=== PATIENT | female | born 1930 | race African-American/Black ===

== ENCOUNTER 2016-06-30 12:58 | Inpatient (IN) | payer MEDICARE, BC ==
--- NOTE | ~2016-06-30 | CR126 ---
[facility] A Service of [facility] RADIOLOGY TEXT RESULTS PATIENT: IRMA NAVA LOCATION: CEDOF : 29 UNIT #: [id number] AGE: [address]: DORA TELLEZ MD SEX: F ORDER DR: [id number] [facility] [address] [facility]. [place], [place] [address] [id number] E MR#: [id number] Acc #: [id number] NAME: IRMA NAVA : 1930 SEX: F STUDY DATE/TIME: 06/30/2016 14:08 UNIT: [facility] ROOM: STUDY DESCRIPTION: CR Foot Complete Min 3 View Lt Attending Physician: Mick Sinclair M.D. Ordering Physician: Mick Sinclair M.D. Primary Care Physician: Jared Minaya III, M.D. MEDICAL IMAGING REPORT This report is preliminary unless electronic signature is present EXAM Left foot series, 06/30/2016 HISTORY 85-year-old female in the ED complaining of 3-day history of left lower leg and foot soft tissue swelling and redness. Peeling skin. History of diabetes. TECHNIQUE Three-view left foot series. FINDINGS Soft tissue edema is seen throughout the left foot. No visible soft tissue gas or radiopaque soft tissue foreign body. No radiographic evidence of osteomyelitis or destructive arthropathy. Generalized demineralization is noted. No fracture, dislocation or other acute osseous abnormality. IMPRESSION Soft tissue swelling throughout the foot. No acute osseous abnormality. Demineralization. Dictated by... Scott Mcgee M.D. THIS IS AN ELECTRONICALLY VERIFIED REPORT Scott Mcgee M.D. at 06/30/2016 6:48 PM MERA/sabi TD: 06/30/2016 15:37 JOB #: [id number] MEDICAL IMAGING REPORT [facility] A Service of [facility] RADIOLOGY TEXT RESULTS PATIENT: IRMA NAVA LOCATION: [facility] : 29 UNIT #: [id number] AGE: [address]: DORA TELLEZ MD SEX: F ORDER DR: Page 1 of 1 COPY
--- NOTE | ~2016-06-30 | US136 ---
[facility] A Service of [facility] RADIOLOGY TEXT RESULTS PATIENT: IRMA NAVA LOCATION: [facility] 316-01 : 29 UNIT #: [id number] AGE: [address]: Thom Zelaya MD SEX: F ORDER DR: [id number] [facility] [address] [facility]. [place], [place] [address] [id number] I MR#: [id number] Acc #: [id number] NAME: IRMA NAVA : 1930 SEX: F STUDY DATE/TIME: 07/01/2016 10:06 UNIT: [address] ROOM: [facility] STUDY DESCRIPTION: US U/L Ext Art Study Ltd Bilat Attending Physician: Thom Zelaya M.D. Ordering Physician: Thom Zelaya M.D. Primary Care Physician: Jared Minaya III, M.D. MEDICAL IMAGING REPORT This report is preliminary unless electronic signature is present EXAM Left lower extremity arterial segmental pressures HISTORY Left leg claudication. Left leg numbness and tingling. FINDINGS The right brachial pressure is 152 and the left brachial pressure is 124. The left posterior tibial pressure is 125, dorsalis pedis 150, and toe 103 for an ankle to brachial index of 0.99. Doppler wave form analysis indicates a triphasic signal in the dorsalis pedis and posterior tibial artery from the left side. Pulse volume recording tracings demonstrate a good amplitude signal at the left ankle level. There is dampening of the amplitude of signal at the digital level. IMPRESSION Normal perfusion to the left leg with an ankle to brachial index of 0.99. 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 Dictated by... Clemente Birch M.D. THIS IS AN ELECTRONICALLY VERIFIED REPORT Clemente Birch M.D. at 07/02/2016 7:32 AM [facility] A Service of [facility] RADIOLOGY TEXT RESULTS PATIENT: IRMA NAVA LOCATION: [facility] 316-01 : 29 UNIT #: [id number] AGE: [address]: Thom Zelaya MD SEX: F ORDER DR: MARLEN/jayce TD: 07/01/2016 13:30 JOB #: [id number] MEDICAL IMAGING REPORT Page 1 of 1 COPY
--- NOTE | ~2016-06-30 | DS ---
Unit #: [id number] #: [id number] Patient: IRMA NAVA [id number] [address] [place], [place] [address] [id number] I MR#: [id number] NAME: IRMA NAVA ROOM: 316 Age: 85 Sex: F Admission Date: 07/01/2016 : 1930 Discharge Date: 07/03/2016 Attending Physician: Thom Zelaya M.D. Primary Care Physician: Jared Minaya III, M.D. DISCHARGE SUMMARY DISCHARGE DIAGNOSES 1. Left lower extremity cellulitis with MRSA wound sensitive to clindamycin. 2. Status post fall. 3. Stage 3 chronic kidney disease followed by Dr. Schaefer. 4. Anasarca with swelling in bilateral lower extremities treated with Lasix. 5. Essential hypertension. Blood pressure has been stable during this hospitalization. 6. Questionable multiple myeloma. Dr. Hernandez of Oncology was consulted. 7. Type 2 diabetes. This is well maintained. 8. Chronic diastolic heart failure, appears to be fluid balanced. 9. Iron deficiency anemia. Replaced orally. PROCEDURES None. CONSULTANTS 1. Dr. Schaefer of Nephrology. 2. Dr. Hernandez of Oncology. DIAGNOSTIC STUDIES LABORATORY: Today's labs include BMP with glucose of 96, BUN 23, creatinine 1.6, sodium 141, potassium 4.4, chloride 97, CO2 of 36, calcium 8.7, and magnesium 2.1. CBC with WBC of 6, RBC 4.26, hemoglobin 10.7, hematocrit 35, MCV 82.2, MCH 25.2, MCHC 30.7, RDW 16.5, platelets 203,000, and MPV is 8. IMAGING: X-ray of tibia-fibula on June 30, 2016, impression: Extensive skin thickening and subcutaneous soft tissue edema throughout the visualized lower leg. Multiple lucent intramedullary bone lesions within the tibia and fibula concerning for potential multiple myeloma. X-ray of the foot on June 30, 2016, impression: Soft tissue swelling throughout the foot. No acute osseous abnormality. Demineralization noted. Lower extremity ultrasound Doppler on June 30, 2016, impression: Negative examination. No evidence of left lower extremity deep venous thrombosis. ABIs of the left lower extremity, impression: Normal perfusion to the left leg with an ankle-brachial index of 0.99. 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 X-ray bone survey done on July 02, 2016, impression: Negative skeletal survey. HOSPITAL COURSE Unit #: [id number] #: [id number] Patient: IRMA NAVA The patient is a pleasant 85-year-old female with a past medical history of chronic kidney disease stage 3, essential hypertension, diabetes, chronic diastolic heart failure, and chronic respiratory failure on two liters of oxygen nasally, who presented to the emergency department due to left lower extremity pain. The patient presented to patient's primary care physician a couple of days ago due to a fall about two to three weeks ago and has had gradually worsening swelling and redness of the lower extremity. In the emergency department, she had fluid seeping out of her lower extremity. The patient had slipped and fell but denied loss of consciousness. Of note, Dr. Schaefer of Nephrology had increased patient's Lasix from 20 mg orally twice daily to 40 mg orally twice daily, and despite this, patient still had lower extremity swelling. Patient was admitted for left lower extremity cellulitis. X-ray and Dopplers were done initially which revealed no DVT. Due to concern on initial x-ray of the foot with questionable multiple myeloma, Dr. Hernandez of Oncology has seen the patient in consultation, and workup is still underway. Dr. Hernandez will see patient in the office in one week to follow up on 24-hour urine studies. At this time, patient is stable and is ready to be discharged home. She will be seen and followed by [facility]. DISCHARGE CONDITION Stable. DISCHARGE DIET Regular/heart-healthy diet with consistent carbohydrates for her diabetes per [place] [employer]'s recommendation. DISCHARGE MEDICATIONS 1. Albuterol nebulized 4 times daily as needed. 2. Symbicort 160 mcg 2 puffs inhaled twice daily. 3. Lexapro 10 mg orally daily. 4. Tenormin 100 mg orally daily. 5. Docusate 100 mg orally daily. 6. MiraLax 17 grams orally daily as needed for constipation. 7. Lasix was increased to 40 mg orally twice daily. 8. Ditropan 10 mg orally daily. 9. Atorvastatin 10 mg orally daily. 10. Lovastatin 40 mg orally at bedtime. 11. Hydralazine 100 mg orally 3 times daily. 12. Iron supplement 325 mg orally twice daily. 13. Aspirin 81 mg orally daily. 14. Protonix 40 mg orally daily. 15. Potassium chloride 20 mEq orally daily. 16. Imdur extended release 60 mg orally daily. 17. Clindamycin 300 mg orally 4 times daily for 5 days. 18. I will also be giving a prescription for probiotic 600 mg orally twice daily. Please note that the Lasix increase and potassium supplement were both confirmed with Dr. Schaefer, and patient does have a followup appointment with Dr. Schaefer and repeats labs of CBC, BMP, and phosphorus level. Dictated by... Chirag Wetzel PA-C for Thom Zelaya M.D. Unit #: [id number] #: [id number] Patient: IRMA NAVA Graham TD: 07/05/2016 20:51 JOB #: [id number] DISCHARGE SUMMARY Page 1 of 1 X X DISCHARGE SUMMARY
--- NOTE | ~2016-06-30 | CR48 ---
[facility] A Service of [facility] RADIOLOGY TEXT RESULTS PATIENT: IRMA NAVA LOCATION: [facility] 316-01 : 29 UNIT #: [id number] AGE: [address]: Thom Zelaya MD SEX: F ORDER DR: [id number] [facility] [address] [facility]. [place], [place] [address] [id number] I MR#: [id number] Acc #: [id number] NAME: IRMA NAVA : 1930 SEX: F STUDY DATE/TIME: 07/02/2016 15:33 UNIT: [address] ROOM: [facility] STUDY DESCRIPTION: CR Bone Survey Attending Physician: Thom Zelaya M.D. Ordering Physician: Tomer Hernandez M.D. Primary Care Physician: Jared Minaya III, M.D. MEDICAL IMAGING REPORT This report is preliminary unless electronic signature is present EXAM Bone survey. HISTORY Possible metastatic malignancy. FINDINGS AP and lateral radiographs of the axial and appendicular skeleton were obtained for a bone survey. No aggressive osteolytic or osteoblastic lesions are identified within the skeleton. Patient has multiple areas of osteoarthritis. No pathologic fractures are identified. IMPRESSION Negative skeletal survey Dictated by... Clif Bryson M.D. THIS IS AN ELECTRONICALLY VERIFIED REPORT Clif Bryson M.D. at 07/02/2016 6:27 PM RPC/jayne TD: 07/02/2016 18:19 JOB #: [id number] MEDICAL IMAGING REPORT Page 1 of 1 COPY
--- NOTE | ~2016-06-30 | HP ---
Unit #: [id number] #: [id number] Patient: IRMA NAVA [id number] [address] [place], [place] [address] [id number] I MR#: [id number] NAME: IRMA NAVA ROOM: 09971 Age: 85 Sex: F Admission Date: 06/30/2016 : 1930 Attending Physician: Mami Arita M.D. Primary Care Physician: Jared Minaya III, M.D. HISTORY AND PHYSICAL CHIEF COMPLAINT Left leg pain. HISTORY OF PRESENT ILLNESS The patient is an 85-year-old female with history of hypertension, diabetes, chronic diastolic heart failure, chronic kidney disease, acute on chronic respiratory failure - on 2 liters of home oxygen. Presented to the emergency room with left lower leg pain. The patient presented to the PCP's office earlier today with history of a fall 2-3 weeks ago and gradual swelling and redness of the left lower lobe. The patient has fluid seeping from the leg with swelling and erythema of the leg. The patient denies any fever, chills, nausea, vomiting. The patient stated she slipped down on the floor and denies any loss of consciousness. PAST MEDICAL HISTORY Chronic diastolic heart failure, chronic respiratory failure - on home oxygen, hypertension, diabetes. PAST SURGICAL HISTORY Hysterectomy, ruptured naval. HOME MEDICATIONS She is on aspirin, Tenormin, Colace, Ditropan, iron, Protonix, Lexapro, Combivent, Symbicort, MiraLAX, hydralazine, Imdur, prednisone, Lasix and lovastatin. FAMILY HISTORY Significant for coronary artery disease. SOCIAL HISTORY The patient has history of social alcohol use and chronic caffeine use. The patient is a former smoker and quit 26 years ago. She is . No known occupational exposures. ALLERGIES No known drug allergies. REVIEW OF SYSTEMS A 14-point review of systems was performed, and all the pertinent positive findings are as described above. The remaining are negative. PHYSICAL EXAMINATION GENERAL: The patient is lying in the bed, not in acute distress. VITALS: Temperature is 97.9, pulse 55, respiratory rate 15, blood Unit #: [id number] #: [id number] Patient: NAVA,IRMA pressure 156/70, satting 96% on room air. HEENT: Head atraumatic, normocephalic. Pupils are equal, round, reacting to light and accommodation. Extraocular movements are intact. Moist mucous membranes. NECK: Supple. LUNGS: Decreased air entry at the bases. No rhonchi. No wheezing. HEART: Regular rate and rhythm. ABDOMEN: Soft. Positive bowel sounds. EXTREMITIES: No cyanosis. No clubbing. Positive for left lower extremity swelling and tenderness and fluid seeping through the wound. NEUROLOGIC: Alert, awake, oriented. No gross focal motor deficit. DIAGNOSTIC STUDIES LAB DATA: Glucose 153, BUN 29, creatinine 1.4, sodium 141, potassium 3.8, chloride 95, bicarb 36, calcium 9.1, total protein 6.6, albumin 3.5, AST 16, ALT 11. WBC 7.1, hemoglobin 11.2, hematocrit 37.6, platelets 222. IMAGING: X-ray of the foot shows soft tissue edema. No gas osteomyelitis. No degenerative arthritis. X-ray of the tibia and fibula shows extensive soft tissue edema and concern for lytic lesions, concerning for multiple myeloma, unlikely metastatic disease. ASSESSMENT 1. Cellulitis of the left leg. 2. Status post fall. 3. Chronic kidney disease. PLAN Plan to admit the patient to observation with telemetry. Continue with IV antibiotics with clindamycin 150 mg q.8 and will have wound evaluation and compression stockings. Change the Lasix oral to IV with 20 mg IV b.i.d. and check urine SPEP and UPEP for multiple myeloma. Will have renal consult for chronic kidney disease stage 3 and check the venous Dopplers of the left leg and repeat the labs again in the morning. Further recommendations will follow. Dictated by Aaliyah Jaquez TD: 06/30/2016 16:17 JOB #: [id number] HISTORY AND PHYSICAL Page 1 of 1 X X HISTORY AND PHYSICAL
--- NOTE | ~2016-06-30 | CR252 ---
[facility] A Service of [facility] RADIOLOGY TEXT RESULTS PATIENT: IRMA NAVA LOCATION: CED : 29 UNIT #: [id number] AGE: [address]: DORA TELLEZ MD SEX: F ORDER DR: [id number] [place] [address] [facility]. [place], [place] [address] [id number] MR#: [id number] Acc #: [id number] NAME: IRMA NAVA : 1930 SEX: F STUDY DATE/TIME: 06/30/2016 14:07 UNIT: [facility] ROOM: STUDY DESCRIPTION: CR Tibia and Fibula 2 Views Lt Attending Physician: Mick Sinclair M.D. Ordering Physician: Mick Sinclair M.D. Primary Care Physician: Jared Minaya III, M.D. MEDICAL IMAGING REPORT This report is preliminary unless electronic signature is present EXAM Left tibia-fibula series 06/30/2016 HISTORY 85-year-old female in the ED complaining of left lower leg redness and swelling. Symptoms for about 3 days. TECHNIQUE AP and lateral radiographs of the left tibia and fibula were obtained. FINDINGS The examination shows extensive soft tissue swelling and subcutaneous edema throughout the visualized left lower leg extending to the ankle. Correlate for clinical evidence of cellulitis. There are multiple regions of lytic intramedullary lucency within the mid portions of both the tibia and fibula. The pattern is concerning for osseous malignancy, particularly multiple myeloma. Followup clinical and laboratory assessment is recommended. Metastatic disease is also possible, but less likely. The findings do not have a radiographic appearance suggestive of osteomyelitis. Advanced degenerative arthropathy is noted at the left knee. No acute osseous abnormality is seen. IMPRESSION 1. Extensive skin thickening and subcutaneous soft tissue edema throughout the visualized lower leg. 2. Multiple lucent intramedullary bone lesions within the tibia and fibula concerning for potential multiple myeloma. See above. Dictated by... [facility] A Service [facility] RADIOLOGY TEXT RESULTS PATIENT: IRMA NAVA LOCATION: [facility] : 29 UNIT #: [id number] AGE: [address]: DORA TELLEZ MD SEX: F ORDER DR: Scott Mcgee M.D. THIS IS AN ELECTRONICALLY VERIFIED REPORT Scott Mcgee M.D. at 06/30/2016 6:48 PM MERA/jose TD: 06/30/2016 15:41 JOB #: [id number] MEDICAL IMAGING REPORT Page 1 of 1 COPY
--- NOTE | ~2016-06-30 | CO ---
Unit #: [id number] #: [id number] Patient: IRMA NAVA [id number] [address] [place], [place] [address] [id number] MR#: [id number] NAME: IRMA NAVA ROOM: 316 Age: 85 Sex: F Admission Date: 07/01/2016 : 1930 Attending Physician: Thom Zelaya M.D. Primary Care Physician: Jared Minaya III, M.D. Consultation Date: 07/03/2016 CONSULTATION REPORT REASON FOR EVALUATION Lytic lesions in the bones, please evaluate. HISTORY OF PRESENT ILLNESS 85-year-old who presented with evidence of cellulitis once before and routine Doppler and x-rays showed two areas of small lytic lesions in the tibial and fibula on the left side. We are requested to evaluate to make sure there is no multiple myeloma. Today I questioned and she states that she has not lost weight, there has been no bone pain except aches and pains in her joints due to age. She is very wide awake, alert, and very good historian. PAST HISTORY Remarkable for chronic kidney disease, diabetes, COPD, hypertension, pulmonary fibrosis, congestive heart failure, hyperlipidemia, and less mobility syndrome. CURRENT MEDICATIONS Protonix, MiraLAX, Imdur, hydralazine, prednisone, Symbicort, aspirin, Tenormin, Ditropan, lovastatin, aspirin, Lexapro. ALLERGIES No known allergies. FAMILY HISTORY Negative for unexplained malignancies or myelomas. Is positive for hypertension and diabetes. SOCIAL HISTORY Former smoker. No alcohol usage currently. She has mobility but is limited due to age and joint pains. REVIEW OF SYSTEMS Mainly remarkable for the fall that happened at home and aches and pains. Appetite is fair. Weight is stable. Performance is about 70 [place]sky. Otherwise six of eight systems were reviewed and within normal limits. PHYSICAL EXAMINATION GENERAL: Looks stated age. Very wide awake, alert. Very pleasant. Oriented x3. No acute distress. HEENT: Edentulous. No palpable nodes. LUNGS: Clear. CARDIOVASCULAR: Distant S1 and S2. ABDOMEN: No organomegaly. Unit #: [id number] #: [id number] Patient: IRMA NAVA COSTUME SPECIALIST: Grossly intact. Details COSTUME SPECIALIST exam was not done. EXTREMITIES: Lower extremity on the left side, there is evidence of some inflammation but there is no evidence of fracture or acute inflammation. PELVIC/BREASTS EXAM: Were not performed. DIAGNOSTIC STUDIES LABORATORY STUDIES: Chemistries - glucose 96, BUN 23, creatinine 1.6, sodium 141, potassium 4.4, chloride 97, CO2 36, uric acid 6.9, total calcium 8.7, magnesium 2.1, total protein 5.7, albumin 3. Hemoglobin 10.7, hematocrit 35, white count 6,000, platelets 203,000. IMAGING STUDIES: Doppler study of the left lower extremity was negative for DVT, normal perfusion was seen. Plain x-ray of tibial and fibula on the left side showed lytic intramedullary lucency within the mid portion of the tibia and fibula and the reading was, this was concerning for malignancy, etc. At this point I came to the room and reviewed all the above with the patient again, options discussed and a decision was made that while she is here it is better that we complete the basic workup, which include serum immunoelectrophoresis, beta 2 microglobulin, free light chain assay, 24 hour urine collection for immunofixation with total protein and skeletal survey and then we can discharge the patient home and will see the patient outpatient in a weeks time and if need be will proceed with bone marrow after biopsy at that point. Dictated by... Aaliyah Mcelroy/gordon TD: 07/03/2016 13:08 JOB #: [id number] CONSULTATION REPORT Page 1 of 1 X Tomer Hernandez MD CONSULTATION REPORT
--- NOTE | ~2016-06-30 | US85 ---
[facility] A Service of [facility] RADIOLOGY TEXT RESULTS PATIENT: IRMA NAVA LOCATION: [facility] [address]36-24 : 29 UNIT #: [id number] AGE: [address]: DORA ARITA MD SEX: F ORDER DR: [id number] [facility] [address] [facility]. [place], [place] [address] [id number] I MR#: [id number] Acc #: [id number] NAME: IRMA NAVA : 1930 SEX: F STUDY DATE/TIME: 06/30/2016 16:50 UNIT: [facility] ROOM: 63374 STUDY DESCRIPTION: US LE Veins Unilat or Ltd Stdy Attending Physician: Dora Arita M.D. Ordering Physician: Ed Ramiro Son M.D. Primary Care Physician: Jared Minaya III, M.D. MEDICAL IMAGING REPORT This report is preliminary unless electronic signature is present EXAM Venous Doppler ultrasound, left leg, 06/30/2016 HISTORY 85-year-old female in the ED complaining of 3-week history of left lower extremity swelling and cellulitis. TECHNIQUE Venous ultrasound examination of the left lower extremity was performed using grayscale, spectral Doppler and color flow Doppler imaging. FINDINGS The examination is negative. There is no evidence of left lower extremity deep venous thrombus from the groin to the lower calf. Visualized greater saphenous vein is also patent. IMPRESSION Negative examination. No evidence of left lower extremity deep venous thrombosis. Dictated by... Scott Mcgee M.D. THIS IS AN ELECTRONICALLY VERIFIED REPORT Scott Mcgee M.D. at 06/30/2016 6:48 PM RGW/jayce TD: 06/30/2016 18:29 JOB #: [id number] MEDICAL IMAGING REPORT Page 1 of 1 COPY
--- NOTE | ~2016-06-30 | CO ---
Unit #: [id number] #: [id number] Patient: IRMA CHRISTOPHER [id number] [address] [place], [place] [address] [id number] MR#: [id number] NAME: IRMA CHRISTOPHER ROOM: 316 Age: 85 Sex: F Admission Date: 06/30/2016 : 1929 Attending Physician: Thom Zelaya M.D. Primary Care Physician: Jared Minaya III, M.D. Consultation Date: 06/30/2016 CONSULTATION REPORT REASON FOR CONSULT Chronic kidney disease. HISTORY OF PRESENT ILLNESS Ms. Christopher is an 85-year-old female, whom I have seen both here in the hospital and in the office for chronic kidney disease, and was admitted for left lower extremity cellulitis. Patient apparently had a fall a few weeks ago and injured her left lower leg and black. The redness and swelling has gradually worsened, and her primary care physician sent her over to the hospital today. Patient is currently getting a dose of vancomycin and is going to be started on clindamycin here in the hospital. We were asked to see for her chronic kidney disease and swelling. Fortunately, her creatinine looks stable at 1.4. Her breathing, she says, is at baseline on oxygen. She says that she is urinating frequently at home with her Lasix. In fact, I had actually taken a call from her family about the swelling fairly recently and had her increase her outpatient Lasix from 20 twice a day to 40 in the morning and 20 in the afternoon. Patient is avoiding NSAIDs. No flank or back pain. No chills. She says the leg does not hurt. PAST MEDICAL HISTORY Past medical history is significant for chronic kidney disease stage 3, hypertension, diabetes, COPD, pulmonary fibrosis, immobility syndrome, hyperlipidemia and diastolic congestive heart failure. PAST SURGICAL HISTORY She has had a hysterectomy. HOME MEDICATIONS 1. MiraLAX daily. 2. Hydralazine 100 mg t.i.d. 3. Imdur 60 mg a day. 4. Prednisone 30 mg every morning, of which she is unsure. 5. Lasix 20 mg b.i.d. 6. Protonix 40 mg a day. 7. Lexapro 10 mg a day. 8. Combivent inhaler. 9. Symbicort inhaler. 10. Aspirin daily. 11. Tenormin 100 mg a day. 12. Colace 100 mg daily. 13. Ditropan 10 mg a day. 14. Iron tablet b.i.d. 15. Lovastatin 40 mg at bedtime. Unit #: [id number] #: [id number] Patient: IRMA CHRISTOPHER She has no known drug allergies. FAMILY HISTORY Family history is significant for cancer, as well as hypertension and diabetes. She does have a sister who has been on dialysis. SOCIAL HISTORY The patient is fairly immobile. She is a former smoker. No alcohol or drug abuse. REVIEW OF SYSTEMS A complete 12-point review of systems was completed with the above findings. In addition, she denies any headaches or dizziness. No nosebleeds, sore throat or earache. No chest pain or palpitations. No cough or hemoptysis. No recent nausea, vomiting or diarrhea. No bright red blood per rectum or melena. No dysuria or hematuria. Again, she has chronic lower extremity swelling. No rashes or itching. No flank pain. No fevers. No night sweats or hot flashes. No intolerance to heat or cold. No bleeding issues, although she has had some oozing of fluid from her left leg. She is unaware of any recent weight changes. Appetite has been okay. Unless otherwise indicated, the review of systems was negative. PHYSICAL EXAMINATION VITAL SIGNS: The patient is afebrile. Pulse 51, respiratory rate 18, blood pressure 156/66. GENERAL: This is an 85-year-old female, alert, answers questions but is slow to do so, in no acute distress. HEENT: Head is atraumatic, normocephalic. Eyes show pink conjunctiva with no scleral icterus. No nasal drainage or nosebleeds. Oropharynx is moist. No thrush. NECK: Neck is thick with no rigidity. CARDIOVASCULAR: Heart is bradycardic and regular with no significant murmur or rub appreciated. RESPIRATORY: Lungs show diminished breath sounds with some fine rales. Breathing is nonlabored at rest. ABDOMEN: Abdomen is obese, soft, nontender. Bowel sounds are present. EXTREMITIES: Patient has 1+ edema below the knees bilaterally, more so on the left than the right, without cyanosis. SKIN: Skin shows cellulitic changes of the left lower leg and the black area with oozing and warmth. MUSCULOSKELETAL: No CVA tenderness to palpation. NEUROLOGIC: Exam shows generalized weakness. LYMPHATIC EXAM: There is no neck cervical lymphadenopathy. PSYCHIATRIC EXAM: Mood and affect appear normal. DIAGNOSTIC STUDIES IMAGING: The patient did have a left lower leg x-ray that showed edema and some findings concerning for potential multiple myeloma. LABS: CBC showed a hemoglobin of 11, platelet count 222. No peripheral eosinophilia. C-reactive protein was 1.8. Chemistry earlier today noteworthy for a potassium of 3.8, bicarb 36, glucose 153, BUN 29, creatinine 1.4, which is fairly close to her baseline, albumin 3.5. Prior creatinine in the computer here was 2.3 at the end of December 2015. Prior to that, baseline looks to be in the mid to high 1 range. Previous urine protein/creatinine ratio was basically unremarkable in September of 2015. Unit #: [id number] #: [id number] Patient: IRMA CHRISTOPHER Two urinalyses in 2016 were negative for protein. The patient has had total protein levels done on 5 occasions here at [facility], all of which were normal. No issues with hypercalcemia. ASSESSMENT AND PLAN 1. Chronic kidney disease, stage 3. Patient's kidney function looks to be at, or even below, her baseline. Certainly, there is room to diurese, which we will do to assist with the swelling and infection in her left leg. 2. Edema. We will be increasing her Lasix from p.o. to IV form twice a day. 3. Hypertension. Home meds will be renewed with reasonable blood pressure control at this time. 4. Anemia of chronic disease. Patient is on iron, and I will be updating iron stores. With a question about her leg x-rays, we will check serum and urine immunofixation and electrophoresis panels. 5. History of diabetes. 6. Cellulitis left leg. I will be adding a probiotic to her clindamycin use. 7. Congestive heart failure, which is diastolic in nature. Patient looks fairly well compensated lung-ta, but she does need some fluid removal on her legs. I would like thank Dr. Arita for this consultation and the opportunity to participate in the evaluation and care of Ms. Christopher. Dictated by... Clemente Schaefer Jr., M.D. SJK/beny TD: 07/01/2016 07:49 JOB #: [id number] CONSULTATION REPORT Page 1 of 1 X Clemente Schaefer MD X CONSULTATION REPORT
[~2016-06-30 12:58] MED LIST: ALEVE220 M1 PO; ATENOLOL PO; AZOR 5-20 MG T1 EACH PO; BAYER CHEWABLE81 MG PO; COMBIVENT U/D3 M1 INH; DITROPAN PO; DOC-Q-LACE100 MG PO; HYDRALAZINE HC100 MG PO; IMDUR-ER60 M1 PO; IRON325 ( 651 PO; LASIX20 MG PO; LEXAPRO PO; LIPITOR PO; MEVACOR PO; MIRALAX17 GM PO; OMNICEF300 MG PO; PREDNISONE10 MG PO; PROTONIX PO; SYMBICORT INH
[2016-06-30 14:33] LABS: BASOPHIL% 0.5 % (0-2.5); EOSINOPHIL# 0.2 X10e3 (0-0.7); EOSINOPHIL% 3.3 % (0.0-7.0); HEMATOCRIT 37.6 % (35.0-45.0); HEMOGLOBIN 11.2 gm/dL (12.0-16.0); LYMPHOCYTE% 14.6 % (17.0-45.0); MEAN CELL VOLUME 82.4 FL (83-96); MEAN CORPUSCULAR HEMOGLOBIN 24.6 PG (28-34); MEAN CORPUSCULAR HGB CONC 29.9 g/dL (30-36); MEAN PLATELET VOLUME 7.7 FL (6.5-11.5); MONOCYTE# 0.5 X10e3 (0-1.0); MONOCYTE% 7.5 % (3.0-12.0); NEUTROPHIL# 5.3 X10e3 (1.5-7.1); NEUTROPHIL% 74.1 % (40-75); PLATELET COUNT 222 X10e3 (140-420); RED BLOOD COUNT 4.56 X10e (3.90-5.30); RED CELL DISTRIBUTION WIDTH 16.8 % (11.0-15.5); WHITE BLOOD COUNT 7.1 X10e3 (4.0-10.5)
[2016-06-30] MEDS ORDERED: PATIENT'S PHARMACY (14:38)
[2016-06-30 14:41] LABS: DIFF IND NO
[2016-06-30 14:49] LABS: ALBUMIN SERUM 3.5 g/dL (3.5-5.0); BILIRUBIN, DIRECT 0.2 mg/dL (0.0-0.2); BILIRUBIN,INDIRECT 0.7 mg/dL (0.0-0.9); BILIRUBIN,TOTAL 0.9 mg/dL (0.2-2.0); BUN/CREATININE RATIO 20.71; CALCIUM SERUM 9.1 mg/dL (8.4-10.2); CREATININE SERUM 1.4 mg/dL (0.6-1.4); GLOM FILT RATE Estimated 39.3 mL/min (>60); POTASSIUM 3.8 mmol/L (3.5-5.1); PROTEIN TOTAL SERUM 6.6 g/dL (6.0-8.3)
[2016-06-30] MEDS ORDERED: ALTOPREV40 MG PO (15:06)
[2016-07-01 06:16] LABS: HEMATOCRIT 35.8 % (35.0-45.0); MEAN CELL VOLUME 81.6 FL (83-96); MEAN CORPUSCULAR HEMOGLOBIN 25.1 PG (28-34); MEAN CORPUSCULAR HGB CONC 30.7 g/dL (30-36); MEAN PLATELET VOLUME 7.9 FL (6.5-11.5); RED BLOOD COUNT 4.38 X10e (3.90-5.30); RED CELL DISTRIBUTION WIDTH 16.5 % (11.0-15.5); WHITE BLOOD COUNT 6.7 X10e3 (4.0-10.5)
[2016-07-01 07:31] LABS: BUN/CREATININE RATIO 19.28; CALCIUM SERUM 8.7 mg/dL (8.4-10.2); CREATININE SERUM 1.4 mg/dL (0.6-1.4); GLOM FILT RATE Estimated 39.3 mL/min (>60); POTASSIUM 3.4 mmol/L (3.5-5.1)
[2016-07-01 07:42] LABS: IRON SERUM 20 ug/dL (28-170); TOTAL IRON BINDING CAPACITY 195 ug/dL (269-535); TRANSFERRIN 139 mg/dL (192-382); TRANSFERRIN SATURATION 10 % (20-50)
[2016-07-02 03:45] LABS: SPE A1GLOB (PNL) 0.4 g/dL (0.2-0.3); SPE A2GLOB (PNL) 0.7 g/dL (0.5-0.9); SPE ALB (PNL) 3.3 g/dL (3.8-4.8); SPE BETA 1 GLOBULIN 0.4 g/dL (0.4-0.6); SPE BETA 2 GLOBULIN 0.3 g/dL (0.2-0.5); SPETP (PNL) 6.1 g/dL (6.1-8.1)
[2016-07-02 05:39] LABS: HEMOGLOBIN 10.7 gm/dL (12.0-16.0); MEAN CELL VOLUME 82.2 FL (83-96); MEAN CORPUSCULAR HEMOGLOBIN 25.2 PG (28-34); MEAN CORPUSCULAR HGB CONC 30.7 g/dL (30-36); RED BLOOD COUNT 4.26 X10e (3.90-5.30); RED CELL DISTRIBUTION WIDTH 16.5 % (11.0-15.5)
[2016-07-02 07:15] LABS: BILIRUBIN,TOTAL 0.9 mg/dL (0.2-2.0); BUN/CREATININE RATIO 17.33; CALCIUM SERUM 8.6 mg/dL (8.4-10.2); CREATININE SERUM 1.5 mg/dL (0.6-1.4); GLOM FILT RATE Estimated 36.2 mL/min (>60); MAGNESIUM 1.6 mg/dL (1.6-3.0); POTASSIUM 4.4 mmol/L (3.5-5.1); PROTEIN TOTAL SERUM 5.7 g/dL (6.0-8.3)
[2016-07-03 09:52] LABS: BUN/CREATININE RATIO 14.37; CALCIUM SERUM 8.7 mg/dL (8.4-10.2); CREATININE SERUM 1.6 mg/dL (0.6-1.4); GLOM FILT RATE Estimated 33.5 mL/min (>60); MAGNESIUM 2.1 mg/dL (1.6-3.0); POTASSIUM 4.4 mmol/L (3.5-5.1)
[2016-07-03] MEDS ORDERED: ACETAMINOPHEN650 M3 PO (15:08)
[2016-07-03] MEDS ORDERED: K-DUR20 ME1 PO (15:09)
[2016-07-03] MEDS ORDERED: CLEOCIN HCL300 M1 PO (15:12)
[2016-07-03] MEDS ORDERED: PROBIOTIC1 EACH PO (15:12)
[2016-07-03 15:38] LABS: U PROTIEN QUANT CALCULATION 0.38 GM/24H (0.10-0.15)
[2016-07-03 23:19] LABS: UPE RAND ALPHA1 GLOB 8 % (()); UPE RAND PROT/CREAT 599 (21-161); UPE RANDOM ALB (PNL) 32 % (()); UPE RANDOM ALPHA 2 GLOB 13 % (()); UPE RANDOM BETA GLOB 24 % (()); UPE RANDOM CREATININE 38.4 mg/dL (20-320); UPE RANDOM GAMMA GLOB 23 % (()); UPE RANDOM TOTAL PROTEIN (PNL) 23 mg/dL (5-24)
== END 2016-07-03 21:47 | disposition home health service (06) | DRG 603 ==
LOC: CED 12:58 → CEDOF 15:12 → CED 15:12 → CEDOF 15:34 → CED 15:34 → C3A PCU 19:53 → CEDOF 19:53 → C3A PCU 07-01 07:21 → CED 07-01 09:45 → C3A PCU 07-01 09:45 → CEDOF 07-01 09:45 → C3A PCU 07-03 21:47
PROVIDERS: Emergency Medicine; Family Medicine; Internal Medicine Medical Oncology; Internal Medicine Nephrology; Physician Assistant Surgical
DX: L03.116 Cellulitis of left lower limb (principal); J96.10 Chronic respiratory failure, unspecified whether with hypoxia or hypercapnia; C90.00 Multiple myeloma not having achieved remission; I13.0 Hypertensive heart and chronic kidney disease with heart failure and stage 1 through stage 4 chronic kidney disease, or unspecified chronic kidney disease; E11.22 Type 2 diabetes mellitus with diabetic chronic kidney disease; I50.32 Chronic diastolic (congestive) heart failure; B95.62 Methicillin resistant Staphylococcus aureus infection as the cause of diseases classified elsewhere; W18.30XA Fall on same level, unspecified, initial encounter; Z99.81 Dependence on supplemental oxygen; Z87.891 Personal history of nicotine dependence; Z79.82 Long term (current) use of aspirin; Z90.710 Acquired absence of both cervix and uterus; N18.3 Chronic kidney disease, stage 3 (moderate); M62.3 Immobility syndrome (paraplegic); D63.1 Anemia in chronic kidney disease; D50.9 Iron deficiency anemia, unspecified; R60.1 Generalized edema
CPT/HCPCS: 36415; 73590; 73630; 77075; 80048; 80053; 80076; 82232; 82570; 82728; 82947; 83540; 83550; 83735; 84156; 84165; 84166; 85025; 85027; 85652; 86140; 86334; 86335; 87040; 87070; 87077; 87186; 87205; 93922; 93971; 94640; 94664; 94760; 97161; 99285; G8978-GP; G8979-GP; G8980-GP; J1650; J1815; J1940; J2916; J3370; J3475